=== PATIENT | male | born 1950 | race Caucasian/White ===

== ENCOUNTER 2019-11-25 00:58 | Day surgery (SDC) | payer MEDICARE, SELFPAY ==
[2019-11-17 13:16] VITALS: BMI 26.6
[2019-11-25] MEDS: LACTATED RINGERS 1,000 ML 150 ML IV CONT ×2 (07:56→08:29)
--- NOTE | 2019-11-25 07:57 | WPDGICN ---
Assessment and Plan Additional Plan This is a 69-year-old white male patient seen in evaluation at the request of Dr. Lazarus Simeon. Patient presents for neoplasia screening colonoscopy. His current weight appetite bowel movements are normal. He denies any blood in his stools. He denies abdominal pain. He has had no weight loss. Family history is noncontributory. Past medical history is significant for elevated cholesterol. Medications include atorvastatin. Fish oil. Vitamins and supplements. He has no stated drug allergies. Physical exam reveals patient to be alert. Oriented x3. Vital signs stable. HEENT exam unremarkable. Lungs are clear to auscultation and percussion. Heart is without murmur or extra sounds. Abdominal exam bowel sounds are present soft nontender with no hepatosplenomegaly. Digital external rectal exam is normal. Impression 1. Neoplasia screening. Plan is for screening colonoscopy. GI Consult Note Consult date/time: 11/25/19 07:57 HPI: Manuel Mcneil is a 69 year old male [facility] Social History Social History Smoking status: Never smoker Second hand tobacco smoke exposure: No Alcohol intake: current Drinks per week: 3 Substance use: never Substance use type: does not use Gender identity (if verbalized by the patient): Male Meds Home Medications and Allergies Home Medications Medication Instructions Recorded Confirmed Type omega-3 fatty acids 1,000 mg 1,000 mg PO DAILY 10/11/19 11/17/19 History capsule atorvastatin 10 mg tablet 10 mg PO DAILY #90 tablet 11/22/19 Rx Allergies Allergy/AdvReac Type Severity Reaction Status Date / Time No Known Allergies Allergy Unknown Unverified 11/25/19 07:58
[2019-11-25 07:59] VITALS: BP 111/77; PULSE 55; RESP 16; TEMP 36.7; O2SAT 99; BMI 26.4
--- NOTE | 2019-11-25 08:06 | WPDANESEPPF ---
Anes - Initial Pre Proc Eval Procedure: Operation Date: 11/25/19 08:30 Proposed Procedures p Screening Colonoscopy - Jesus Christy MD Date/Time: 11/25/19 08:06 Surgeon: Jesus Christy MD Pre Op Diagnosis: neoplasm screening Patient Data Age: 69 Gender: M Height: 6 ft Weight: 88.4 kg Last Vital Signs Temp 98.1 F 11/25/19 07:59 Pulse 55 L 11/25/19 07:59 Resp 16 11/25/19 07:59 BP 111/77 11/25/19 07:59 Pulse Ox 99 11/25/19 07:59 Allergies Allergy/AdvReac Type Severity Reaction Status Date / Time No Known Allergies Allergy Unknown Unverified 11/25/19 07:58 Home Medications Medication Instructions Recorded Confirmed Type omega-3 fatty acids 1,000 mg 1,000 mg PO DAILY 10/11/19 11/17/19 History capsule atorvastatin 10 mg tablet 10 mg PO DAILY #90 tablet 11/22/19 11/25/19 Rx Patient hx anesthesia problems: none Family hx anesthesia problems: none PMFSH Past Medical History Medical History (Updated 11/25/19 @ 08:01 by Esdras Patten MD) Hyperlipidemia Surgical History Surgical History History of prostate surgery Status post cataract extraction Status post wisdom tooth extraction Social History Social History Smoking status: Never smoker Second hand tobacco smoke exposure: No Alcohol intake: current Drinks per week: 3 Substance use: never Substance use type: does not use Gender identity (if verbalized by the patient): Male Anes - Eval Final PreProcedure Day of Procedure 11/25/19 08:06 Patient weight: normal Heart: regular rate and rhythm Lungs: clear to auscultation Airway: Mallampati scale class II Neurological: alert and oriented Last oral intake: >/= 8 hours ASA classification: II Emergent: no Anesthetic plan: proceed Anesthesia type and monitoring: general GIVS and standard monitoring Informed Consent: The patient's anesthetic plan and its attendant risks and benefits were discussed with the patient/family/POA. Questions were solicited and answers provided to the satisfaction of the patient/family/POA.
[2019-11-25 09:00] VITALS: BP 96/58; PULSE 56; RESP 17; O2SAT 97
[2019-11-25 09:10] VITALS: BP 97/64; PULSE 52; RESP 20; O2SAT 97
[2019-11-25 09:20] VITALS: BP 98/68; PULSE 55; RESP 19; O2SAT 99
== END 2019-11-25 09:39 | disposition home or self-care (01) ==
PROVIDERS: PCP Family Medicine; Visit Provider Internal Medicine Gastroenterology
PROC: 0DJD8ZZ Inspection of Lower Intestinal Tract, Via Natural or Artificial Opening Endoscopic (ICD-10-PCS; CPT 45378; principal; 2019-11-25 08:30)
DX: Z12.11 Encounter for screening for malignant neoplasm of colon (principal); K64.8 Other hemorrhoids; E78.00 Pure hypercholesterolemia, unspecified
CPT/HCPCS: G0121; J2704; J7120

== ENCOUNTER 2021-05-17 11:29 | Outpatient (CLI) | payer MEDICARE, SELFPAY ==
--- NOTE | ~2021-05-17 | XR_ITS ---
EXAMINATION: XR lumbar spine 2-3V DATE: 05/17/2021 11:47 INDICATION: Low back pain TECHNIQUE: Anteroposterior and lateral views of the lumbar spine, and cone-down lateral view of the l umbosacral junction were obtained. COMPARISON: 01/19/2006 FINDINGS: There is no fracture, dislocation, or subluxation of the lumbar spine. Mild loss of interve rtebral disc space height is present at L4-5. The vertebral body heights are maintained. There appear s to be mild loss of anterior vertebral body height at T12. The bowel gas pattern is normal. IMPRESSION: 1. Mild lumbar spondylosis without acute findings or significant interval change. 2. Possible mild T12 compression fracture. Reviewed, dictated and finalized at location B. IMPRESSION: 1. Mild lumbar spondylosis without acute findings or significant interval alcala e. 2. Possible mild T12 compression fracture.
== END 2021-05-17 11:30 | disposition home or self-care (01) ==
LOC: ANHIMG 11:33
PROVIDERS: PCP Family Medicine; Visit Provider Nurse Practitioner Family
DX: M47.896 Other spondylosis, lumbar region (principal)
CPT/HCPCS: 72100

== ENCOUNTER → 2021-05-28 15:21 | Outpatient (CLI) | payer MEDICARE, SELFPAY ==
--- NOTE | ~2021-05-28 | CT_ITS ---
EXAMINATION: CT thoracic spine wo con DATE: 05/28/2021 15:37 INDICATION: T12 compression fracture. Low back pain. TECHNIQUE: Computed tomography (CT) of the thoracic spine was performed without intravenous contrast. Automated exposure control and iterative reconstruction technique were employed. The dose-length pro duct was 746.23 mGy-cm. COMPARISON: Thoracic spine radiographs 05/17/2021 FINDINGS: Calcified right lung nodules, calcified right hilar and mediastinal lymph nodes, and spleni c calcifications are consistent with old granulomatous disease. There is 5 degrees levocurvature of u pper thoracic spine. There is mild chronic anterior wedging of T7, T8, T11, and T12 vertebral bodies. There is severe cervical spondylosis. There is moderately decreased disc height from T5-T6 through T 8-T9. There are bridging endplate osteophytes from T5-T12, consistent with diffuse idiopathic skeleta l hyperostosis (DISH). At T10-T11, there is mild central canal stenosis. There is multilevel mild fac et joint osteoarthritis. There is mild neural foraminal stenosis at multiple levels bilaterally. On t he right, there is moderate neural foraminal stenosis at T3-T4. IMPRESSION: 1. No acute fracture. 2. DISH. 3. Moderate thoracic spondylosis and severe cervical spondylosis. Reviewed, dictated and finalized at location A.
== END ==
PROVIDERS: PCP Family Medicine; Visit Provider Nurse Practitioner Family
DX: S22.080A Wedge compression fracture of T11-T12 vertebra, initial encounter for closed fracture (principal); X58.XXXA Exposure to other specified factors, initial encounter; M48.14 Ankylosing hyperostosis [Forestier], thoracic region; M47.892 Other spondylosis, cervical region; M47.894 Other spondylosis, thoracic region
CPT/HCPCS: 72128

== ENCOUNTER → 2021-10-15 13:22 | Outpatient (CLI) | payer MEDICARE, SELFPAY ==
--- NOTE | ~2021-10-15 | XR_ITS ---
XR knee RT 3V DATE: 10/15/2021 13:53 INDICATION: Right knee pain TECHNIQUE: [place] and standing AP and lateral views COMPARISON: None FINDINGS: There is superior pole patellar enthesopathy at quadriceps tendon insertion. There is sligh t periarticular spurring of the patella and medial femoral condyle. Joint spaces are relatively prese rved. No fracture or dislocation, periosteal reaction or bone destruction, radiopaque intra-articular There is mild enthesopathy of the anterior tibial tuberosity at the patellar tendon insertion site. No radiopaque intra-articular loose body or chondrocalcinosis is evident. IMPRESSION: Mild osteoarthritis Reviewed, dictated and finalized at location B. 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
== END ==
PROVIDERS: PCP Family Medicine; Visit Provider Family Medicine
DX: M17.11 Unilateral primary osteoarthritis, right knee (principal)
CPT/HCPCS: 73562

== ENCOUNTER → 2022-04-17 13:54 | Outpatient (CLI) | payer MEDICARE, SELFPAY ==
--- NOTE | ~2022-04-17 | XR_ITS ---
XR knee RT 2V DATE: 04/17/2022 14:31 INDICATION: Right knee pain TECHNIQUE: AP and lateral views COMPARISON: 10/15/2021 right knee FINDINGS: There is mild superior pole patellar enthesopathy. There is slight spurring of the patella and medial compartments and minimal loss of height of medial compartment joint space. No fracture or dislocation or joint effusion. No periosteal reaction or bone destruction. IMPRESSION: Mild osteoarthritis; little interval change since 10/15/2021 Reviewed, dictated and finalized at location A.
--- NOTE | ~2022-04-17 | XR_ITS ---
XR knee LT 2V DATE: 04/17/2022 14:31 INDICATION: Right knee pain TECHNIQUE: AP and lateral views COMPARISON: None FINDINGS: There is mild periarticular spurring at the patella and mild loss of height of medial melo rtment joint space. No fracture or dislocation or joint effusion. Superior pole patellar enthesopathy at quadriceps tendon insertion. No radiopaque intra-articular loose body or chondrocalcinosis. IMPRESSION: Mild patellofemoral and medial compartment osteoarthritis Reviewed, dictated and finalized at location A.
== END ==
PROVIDERS: PCP Family Medicine; Visit Provider Family Medicine
DX: M25.561 Pain in right knee (principal); M25.562 Pain in left knee; M17.0 Bilateral primary osteoarthritis of knee
CPT/HCPCS: 73560

== ENCOUNTER → 2023-06-04 16:04 | Outpatient (CLI) | payer MEDICARE, SELFPAY ==
--- NOTE | ~2023-06-04 | XR_ITS ---
Thoracic spine: Clinical Indication: Back pain AP and lateral views were performed. No fracture is seen. There is normal alignment of the vertebrae. The intervertebral disc spaces appe ar normal. Paravertebral soft tissues appear normal. There is DISH of the thoracic spine. Impression: DISH of the mid thoracic spine. Reviewed, dictated and finalized at location . Impression: DISH of the mid thoracic spine.
--- NOTE | ~2023-06-04 | XR_ITS ---
Lumbosacral Spine: AP and lateral views Clinical History: Pain Findings: The normal lordotic curve is maintained. The vertebral bodies and posterior elements are i ntact. There is moderate degenerative disc change at L4-L5. There is moderate facet arthropathy at L4 -L5 and L5-S1. The sacroiliac joints are normally outlined. Impression: Degenerative change at the lower lumbar spine, as above. Reviewed, dictated and finalized at location M. Impression: Degenerative change at the lower lumbar spine, as above.
== END ==
PROVIDERS: PCP Family Medicine; Visit Provider Family Medicine
DX: M54.6 Pain in thoracic spine (principal); M54.50 Low back pain, unspecified; M48.14 Ankylosing hyperostosis [Forestier], thoracic region
CPT/HCPCS: 72070; 72100

== ENCOUNTER 2023-06-20 13:43 | Outpatient (CLI) | payer MEDICARE, SELFPAY ==
--- NOTE | ~2023-06-20 | MR_ITS ---
EXAMINATION: MR thoracic spine wo con, MR lumbar spine wo con DATE: 06/20/2023 14:57 INDICATION: Spinal ankylosis and hyperostosis. Thoracic and lumbar back pain. TECHNIQUE: 1. Magnetic resonance imaging (MRI) of the thoracic spine was performed without intravenous contrast. Sagittal localizer T1-weighted FSE of the cervicothoracic spine was obtained. Thoracic spine sequenc es included sagittal T2-weighted FSE, sagittal T1-weighted SE, Sagittal T2-weighted FS FSE, and axial T2-weighted FSE. 2. Magnetic resonance imaging (MRI) of the lumbar spine was performed without intravenous contrast. S equences included sagittal T2-weighted FSE, sagittal T2-weighted FS FSE, sagittal T1-weighted FSE, an d axial T2-weighted FSE. COMPARISON: Radiograph dated 06/04/2023 and [id number] dated 06/05/2021 FINDINGS: THORACIC SPINE MRI: Mild thoracic kyphosis. There is chronic mild anterior wedging at T7, T8, T11 and T12. There are righ t anterior bridging osteophytes spanning multiple disc spaces in the mid to lower thoracic spine. Mod erate disc height loss at T6-T7 and T7-T8 and T8-T9 with suggestion of some osseous fusion across a p ortion of at least the T8-T9 disc space. Additional moderate disc height loss at C7-T1. There is mild disc height loss at the remaining thoracic levels. There are small disc protrusions at multiple leve ls throughout the thoracic spine without significant central canal stenosis. There are small Schmorl' s nodes posteriorly at the T10-T11 and T11-T12 disc spaces which results in minimal retropulsion of t he adjacent cephalad and caudal aspects the posterior wall of T11 continuing to mild central canal st enosis at both levels. There is mild facet osteoarthritis contributing to mild neural foraminal steno sis at multiple levels of both the left and right sides of the thoracic spine. There is normal spinal cord signal Paravertebral soft tissues are unremarkable. LUMBAR SPINE MRI: Alignment is normal. Chronic mild posterior wedging at L5. Mild to moderate disc height loss with fib rovascular degenerative endplate changes at L4-5. Marrow signal is otherwise unremarkable. Disc desic cation without significant disc height loss throughout the remaining lumbar levels. Annular fissures at L4-L5 and L5-S1. The conus medullaris terminates at L1. Vertebral soft tissues are unremarkable. T he following disc levels are specifically discussed: L1-L2: Disc is mildly bulging. There is mild bilateral facet joint osteoarthritis. There is mild bila teral neural foraminal stenosis. There is no central canal stenosis. L2-L3: Disc is bulging. There is mild bilateral facet joint osteoarthritis. There is mild right and m ild to moderate left neural foraminal stenosis. There is mild central canal stenosis. L3-L4: Disc is bulging. There is mild left and moderate right facet joint osteoarthritis. There is mi ld bilateral neural foraminal stenosis. There is mild central canal stenosis. L4-L5: Disc is bulging with annular fissure. There is moderate right and mild to moderate left facet joint osteoarthritis. There is moderate bilateral, left greater than right, neural foraminal stenosis . There is mild central canal stenosis. L5-S1: Disc is bulging with annular fissure. There is severe bilateral facet joint osteoarthritis. Th ere is mild right and moderate left neural foraminal stenosis. There is no central canal stenosis. IMPRESSION: 1. . Thoracic and mild to moderate lumbar spondylosis. Reviewed, dictated and finalized at location A. IMPRESSION: 1. . Thoracic and mild to moderate lumbar spondylosis.
== END 2023-06-20 13:44 | disposition home or self-care (01) ==
PROVIDERS: PCP Family Medicine; Visit Provider Family Medicine
DX: M54.6 Pain in thoracic spine (principal); M54.50 Low back pain, unspecified; M48.10 Ankylosing hyperostosis [Forestier], site unspecified; M43.06 Spondylolysis, lumbar region; M43.04 Spondylolysis, thoracic region
CPT/HCPCS: 72146; 72148

== ENCOUNTER 2023-11-25 07:58 | Day surgery (SDC) | payer MEDICARE, SELFPAY ==
[2023-11-17 10:37] VITALS: BMI 25.7
--- NOTE | ~2023-11-25 | XR_ITS ---
EXAMINATION: XR fluoroscopy no charge DATE: 11/25/2023 10:10 [employer] INDICATION: TONE L3,L4,L5 NERVE BK . TECHNIQUE: 10 fluoroscopic images of the lumbar spine were obtained during bilateral L3, L4, L5 nerve block performed by the surgeon. I was not present during the procedure. Fluoroscopy exposure time wa s 17.3 seconds. Air Kerma 6.20 mGy. COMPARISON: None FINDINGS: Injection needles approach the lateral aspect of multiple lower lumbar vertebral bodies, bilaterally. IMPRESSION: Fluoroscopic documentation of bilateral L3, L4, L5 nerve block. Please refer to the operative note fo r complete procedural details . Reviewed, dictated and finalized at location K. [employer] IMPRESSION: Fluoroscopic documentation of bilateral L3, L4, L5 nerve block. Please refer to the operative note for complete procedural details .
[2023-11-25 09:40] VITALS: BP 122/83; PULSE 65; RESP 16; TEMP 36.6; O2SAT 97; BMI 26.3
--- NOTE | 2023-11-25 09:42 | WPDHPUPDATE1 ---
History and Physical Update Update Date/Time: 11/25/23 09:42 History and Physical has been reviewed, including an updated exam of the patient. There are NO changes in the patient's condition. Risks, benefits, and alternatives have been discussed and questions answered. Patient agrees to proceed with procedure.
--- NOTE | 2023-11-25 09:43 | W.PM.PROC2 ---
Procedure Note - Detailed Date of Procedure 11/25/23 Pre-op Diagnosis Lumbosacral Spondylosis w/o Myelopathy, chronic low back pain Post-op Diagnosis Same Procedure Performed Bilateral L3, L4, L5 medial branch/dorsal ramus nerve block (#1) addressing the bilateral L4-5, L5-S1 facet joints under fluoroscopic guidance with contrast control. Surgeon Manuel Lee MD Anesthesia Local Description of Procedure INFORMED CONSENT: Risks, benefits and alternatives to the procedure were discussed in detail with the patient who expressed explicit understanding and consent to proceed. Patient was informed verbally and in written form regarding the risks associated with the procedure including the low risk of serious infection, bleeding/bruising, allergic reaction, nerve or organ injury, paralysis, procedural site pain or discomfort, worsening pain and/or mobility, failure to treat and/or disfigurement. The patient expressed explicit understanding and consent to proceed. All materials required for the procedure were available prior to procedure start. Site and side were marked prior to procedure and confirmed in the presence of the patient. PROCEDURE IN DETAIL: The patient was brought to the procedural suite and placed in the prone position. Patient was made comfortable with use of pillows under the head/chest, hips and ankles. Skin overlying the injection site on the affected side(s) was prepared broadly with ChloraPrep applicator and draped in a sterile manner. Aseptic technique was used throughout. The endplates of the vertebral bodies at the site(s) of interest were aligned in the AP view. Ipsilateral oblique angulation was utilized to optimize visualization of the intersection between the superior articulating process and transverse process at each target site. Local anesthesia was established by infiltration with approximately 5 mL of 1% lidocaine via a 1-1/2 inch 27-gauge needle. A 25-gauge 3.0 inch Quincke spinal needle was advanced until the needle tip contacted periosteum at the target site, right L3. Lateral view was utilized to confirm the appropriate placement of the needle tip just anterior to the facet line and superior to the pedicle. In the Lateral view, 0.25 mL of Omnipaque 300 contrast medium was injected after negative aspiration for CSF, blood or other bodily fluid, showing appropriate extra-articular spread of contrast without evidence of intravascular, foraminal or intrathecal placement. A 0.5 mL solution of 0.5% PF bupivacaine was injected after negative repeat aspiration. Appropriate spread of the injectate was confirmed with washout of previously injected contrast. No parasthesias were elicited. Needle was removed completely intact without difficulty. The same exact procedure was repeated for all remaining levels on the ipsilateral side, right L4, L5 medial branches/dorsal ramus, modified as necessary to accommodate for the new target location with identical findings and results and no evidence of complication. The same exact procedure was repeated for all remaining levels on the contralateral side, left L3, L4, L5 medial branches/dorsal ramus, modified as necessary to accommodate for the new target location with identical findings and results and no evidence of complication. Images were saved and documented in the patient chart. Patient's skin was cleaned and sterile bandage applied. The patient tolerated the procedure well. The patient was transported to the recovery area in stable condition where they were observed for an appropriate amount of time prior to discharge, without evidence of complication. Patient was instructed on the appropriate completion of a pain diary over the next 12-24 hours. The patient was instructed to avoid excessive activity for the next 48 hours, including climbing and frequent use of stairs. Showers only for 48 hours. They were instructed not to drive or operate heavy machinery for 24 hours. They are to monitor for sever
[2023-11-25 10:17] VITALS: BP 138/80; PULSE 67; RESP 14; O2SAT 95
[2023-11-25 10:22] VITALS: BP 157/82; PULSE 72; RESP 12; O2SAT 96
[2023-11-25] MEDS: BUPivacaine HCL 0.5% 10 ML AMP INFILTRATE (10:24)
[2023-11-25 10:26] VITALS: BP 149/76; PULSE 71; RESP 12; O2SAT 96
[2023-11-25] MEDS: LIDOCAINE HCL 1% PF INJ 5 ML VIAL AFFCTD EYE (10:28)
[2023-11-25 10:33] VITALS: BP 130/94; PULSE 64; RESP 16; O2SAT 97
== END 2023-11-25 10:45 | disposition home or self-care (01) ==
PROVIDERS: PCP Family Medicine; Visit Provider Anesthesiology Pain Medicine
PROC: (CPT 64493; principal; 2023-11-25 10:30)
DX: M47.817 Spondylosis without myelopathy or radiculopathy, lumbosacral region (principal); M54.59 Other low back pain
CPT/HCPCS: 64493; 64494; 99199

== ENCOUNTER 2023-12-30 06:00 | Day surgery (SDC) | payer MEDICARE, SELFPAY ==
--- NOTE | ~2023-12-30 | XR_ITS ---
EXAMINATION: XR fluoroscopy no charge DATE: 12/30/2023 7:55 [employer]VERTISING DESIGN[employer] INDICATION: TONE L3-5 BK . TECHNIQUE: 11 fluoroscopic images and one cine clip of 4 images of the lumbar spine were obtained dur ing bilateral L3-5 nerve block, performed by Manuel Lee MD. I was not present during the proced ure. Fluoroscopy exposure time was 15.3 seconds. Air Kerma 3.75 mGy. COMPARISON: None FINDINGS/IMPRESSION: Fluoroscopic documentation of bilateral L3-5 nerve block. Please refer to the operative note for comp lete procedural details. Reviewed, dictated and finalized at location K. RTISING DESIGNER
[2023-12-30 07:23] VITALS: BP 122/73; PULSE 58; RESP 14; TEMP 36.4; O2SAT 97
--- NOTE | 2023-12-30 07:51 | WPDHPUPDATE1 ---
History and Physical Update Update Date/Time: 12/30/23 07:51 History and Physical has been reviewed, including an updated exam of the patient. There are NO changes in the patient's condition. Risks, benefits, and alternatives have been discussed and questions answered. Patient agrees to proceed with procedure.
--- NOTE | 2023-12-30 07:52 | W.PM.PROC2 ---
Procedure Note - Detailed Date of Procedure 12/30/23 Pre-op Diagnosis Lumbar Spondylosis w/o Myelopathy or Radiculopathy, chronic low back pain Post-op Diagnosis Same Procedure Performed Bilateral L3, L4, L5 medial branch blocks (#2) addressing the bilateral L4-5, L5-S1 facet joints under fluoroscopic guidance with contrast control. Surgeon Manuel Lee MD Anesthesia Local Description of Procedure INFORMED CONSENT: Risks, benefits and alternatives to the procedure were discussed in detail with the patient who expressed explicit understanding and consent to proceed. Patient was informed verbally and in written form regarding the risks associated with the procedure including the low risk of serious infection, bleeding/bruising, allergic reaction, nerve or organ injury, paralysis, procedural site pain or discomfort, worsening pain and/or mobility, failure to treat and/or disfigurement. The patient expressed explicit understanding and consent to proceed. All materials required for the procedure were available prior to procedure start. Site and side were marked prior to procedure and confirmed in the presence of the patient. PROCEDURE IN DETAIL: The patient was brought to the procedural suite and placed in the prone position. Patient was made comfortable with use of pillows under the head/chest, hips and ankles. Skin overlying the injection site on the affected side(s) was prepared broadly with ChloraPrep applicator and draped in a sterile manner. Aseptic technique was used throughout. The endplates of the vertebral bodies at the site(s) of interest were aligned in the AP view. Ipsilateral oblique angulation was utilized to optimize visualization of the intersection between the superior articulating process and transverse process at each target site. Local anesthesia was established by infiltration with approximately 5 mL of 1% lidocaine via a 1-1/2 inch 27-gauge needle. A 25-gauge 3.5 inch Quincke spinal needle was advanced until the needle tip contacted periosteum at the target site, right L3. Lateral view was utilized to confirm the appropriate placement of the needle tip just anterior to the facet line and superior to the pedicle. In the Lateral view, 0.25 mL of Omnipaque 300 contrast medium was injected after negative aspiration for CSF, blood or other bodily fluid, showing appropriate extra-articular spread of contrast without evidence of intravascular, foraminal or intrathecal placement. A 0.5 mL solution of 2.0% preservative-free lidocaine was injected after negative repeat aspiration. Appropriate spread of the injectate was confirmed with washout of previously injected contrast. No parasthesias were elicited. Needle was removed completely intact without difficulty. The same exact procedure was repeated for all remaining levels on the ipsilateral side, right L4, L5 medial branches/dorsal ramus, modified as necessary to accommodate for the new target location with identical findings and results and no evidence of complication. The same exact procedure was repeated for all remaining levels on the contralateral side, left L3, L4, L5 medial branches/dorsal ramus, modified as necessary to accommodate for the new target location with identical findings and results and no evidence of complication. Images were saved and documented in the patient chart. Patient's skin was cleaned and sterile bandage applied. The patient tolerated the procedure well. The patient was transported to the recovery area in stable condition where they were observed for an appropriate amount of time prior to discharge, without evidence of complication. Patient was instructed on the appropriate completion of a pain diary over the next 12-24 hours. The patient was instructed to avoid excessive activity for the next 48 hours, including climbing and frequent use of stairs. Showers only for 48 hours. They were instructed not to drive or operate heavy machinery for 24 hours. They are to monito
[2023-12-30 08:00] VITALS: BP 126/67; PULSE 68; RESP 20; O2SAT 95
[2023-12-30 08:10] VITALS: BP 133/73; PULSE 69; RESP 13; O2SAT 95
[2023-12-30] MEDS: LIDOCAINE HCL 2% PF INJ 5 ML VIAL 2 ML INFILTRATE (08:15)
[2023-12-30] MEDS: LIDOCAINE HCL 1% PF INJ 5 ML VIAL 3 ML INFILTRATE (08:15)
[2023-12-30 08:18] VITALS: BP 132/77; PULSE 61; RESP 16; O2SAT 97
== END 2023-12-30 08:33 | disposition home or self-care (01) ==
PROVIDERS: PCP Family Medicine; Visit Provider Anesthesiology Pain Medicine
PROC: (CPT 64493; principal; 2023-12-30 08:00)
DX: M47.817 Spondylosis without myelopathy or radiculopathy, lumbosacral region (principal); M54.59 Other low back pain
CPT/HCPCS: 64493; 64494; 99199

== ENCOUNTER 2024-05-11 14:09 | Outpatient (CLI) | payer MEDICARE, SELFPAY ==
--- NOTE | ~2024-05-11 | XR_ITS ---
XR chest 2V Ordering provider: Manuel Lee MD History: 73 years Male with . M47.817 - Spondylosis without myelopathy or radiculopathy... . Comparison: January 19, 2006 FINDINGS: MEDIASTINUM: The cardiac silhouette is not enlarged. Elevation of the left hemidiaphragm. Prominent b oth gill. LUNGS: No infiltrates, effusions or pneumothorax. Atelectatic changes in the left lung base. Opacity seen in the apical area bilaterally is most likely summation shadow. OTHER: No free air under the diaphragm. Degenerative changes of the spine. IMPRESSION: Minimal atelectatic changes in the left lung base. Otherwise, unremarkable. Vague opacity in the apical areas more on the left side most likely summation shadow follow-up in [address] is advised. Reviewed, dictated and finalized at location A. IMPRESSION: Minimal atelectatic changes in the left lung base. Otherwise, unremarkable. Vague opacity in the apical areas more on the left side most likely summation s hadow follow-up in [address] is advised.
--- NOTE | 2024-05-11 14:22 | ECG_ITS ---
Test Date: 2024-05-11 14:28:02 Measurements Intervals [place] Rate: 65 P: 61 VA: 160 QRS: 19 QRSD: 86 T: 49 QT: 385 QTc: 403 Interpretive Statements SINUS RHYTHM EARLY PRECORDIAL R/S TRANSITION BORDERLINE ECG No previous ECG available for comparison Electronically Signed On 05-11-2024 15:04:48 CDT by Marcos Luna D.O.
[2024-05-11 14:29] LABS: Hematocrit 43.3 % (42.0-52.0); Hemoglobin 14.7 g/dL (14.0-18.0); Mean Corpuscular HGB Conc 33.9 g/dl (32-36); Mean Corpuscular Hemoglobin 32.2 pg (26-34); Mean Corpuscular Volume 94.7 fl (80-100); Mean Platelet Volume 9.1 fl (7.4-10.4); Platelet Count Result 275 k/mm3 (150-375); Red Blood Count 4.57 M/mm3 (4.6-6.20); Red Cell Distribution Width 11.8 % (11.5-14.5); White Blood Count 5.9 K/mm3 (4.5-10.0)
[2024-05-11 14:38] LABS: Alanine Aminotransferase 21 U/L (6-50); Albumin Level 4.5 g/dL (3.5-5.1); Alkaline Phosphatase 81 U/L (38-126); Anion Gap 10 mmol/L (4-12); Aspartate Amino Transferase 25 U/L (17-59); Blood Urea Nitrogen 21 mg/dL (9-20); Calcium 9.3 mg/dL (8.4-10.2); Carbon Dioxide 28 mmol/L (22-30); Chloride 102 mmol/L (98-107); Estimated Glomerular Filt Rate > 60; Glucose 91 mg/dL (65-110); Potassium 4.1 mmol/L (3.4-5.0); Sodium 140 mmol/L (137-145)
[2024-05-11 14:49] LABS: Prothrombin Time 13.5 Seconds (11.1-14.7)
[2024-05-11 14:50] LABS: Partial Thromboplastin Time 23.9 Seconds (22.3-36.8)
== END 2024-05-11 14:10 | disposition home or self-care (01) ==
PROVIDERS: PCP Family Medicine; Visit Provider Anesthesiology Pain Medicine
DX: M47.817 Spondylosis without myelopathy or radiculopathy, lumbosacral region (principal); R94.31 Abnormal electrocardiogram [ECG] [EKG]
CPT/HCPCS: 36415; 71046; 80053; 85027; 85610; 85730; 93005

== ENCOUNTER 2024-05-18 05:58 | Day surgery (SDC) | payer MEDICARE, SELFPAY ==
[2024-05-11 11:38] VITALS: BMI 25.9
[2024-05-18] VITALS (9 sets, daily range): BP systolic 113–134; BP diastolic 71–82; PULSE 52–60; RESP 8–18; TEMP 36.3–36.6; O2SAT 97–100; BMI 25.6
--- NOTE | ~2024-05-18 | XR_ITS ---
XR fluoroscopy no charge Indication:Percutaneous transpedicular intraosseous basivertebral nerve ablation TECHNIQUE: Fluoroscopy used during Percutaneous transpedicular intraosseous basivertebral nerve abla tion performed by [Manuel Lee MD] on 05/18/2024. 185 seconds of fluoroscopy with 26 fluorosc opic images captured. FINDINGS: Correlate with procedure note. IMPRESSION: Fluoroscopy used during Percutaneous transpedicular intraosseous basivertebral nerve abla tion. Reviewed, dictated and finalized at location B. IMPRESSION: Fluoroscopy used during Percutaneous transpedicular intraosseous ba sivertebral nerve ablation.
--- NOTE | 2024-05-18 05:37 | PM.HPGS ---
History of Present Illness History of Present Illness Consent: Risks, benefits, and alternatives have been discussed and questions answered. Patient agrees to proceed with procedure. 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 Review of Systems Review of Systems: Patient denies any new infectious, allergic, cardiopulmonary, neurologic or constitutional symptoms or changes in activity tolerance or exercise capacity including new or progressive SOB/RICHARDS, peripheral edema, productive cough, dysuria, nausea/vomiting, diarrhea, weight change, fevers/chills/night sweats, new or progressive neurologic deficit, cognitive or mood changes since last seen, except as documented in the HPI. All systems reviewed & are unremarkable except as noted in HPI and below PMFSH Past Medical History Medical History Hyperlipidemia Surgical History Surgical History History of prostate surgery Status post cataract extraction Status post wisdom tooth extraction Family History Family History Father Hypertension Cerebrovascular accident Family history of diabetes mellitus in first degree relative Family history of coronary artery disease Mother Family history of diabetes mellitus in first degree relative Social History Social History Smoking status: Never smoker Second hand tobacco smoke exposure: No Alcohol intake: current Drinks per week: 2 Alcohol use details: social Substance use: current Substance use type: marijuana Other substance usage details: 2X A WEEK Living arrangements: with family Occupation/Education: retired Gender identity (if verbalized by the patient): Male Sexual Orientation (if Verbalized by the Patient): Straight or Heterosexual Spiritual care concerns: No Meds Home Medications and Allergies Home Medications Medication Instructions Recorded Confirmed Type omega-3 fatty acids 1,000 mg 1,000 mg PO DAILY 10/11/19 05/11/24 History capsule (Fish Oil Concentrate) ascorbic acid (vitamin C) 500 mg 500 mg PO DAILY 10/16/20 05/11/24 History capsule multivitamin 1 tablet PO DAILY 10/16/20 05/11/24 History vitamin E mixed 400 unit capsule 400 unit PO DAILY 10/16/20 05/11/24 History tamsulosin 0.4 mg capsule (Flomax) 0.4 mg PO HS 11/11/23 05/11/24 History atorvastatin 10 mg tablet 10 mg PO HS 05/11/24 05/11/24 History coenzyme Q10-red yeast rice 25 1 cap PO DAILY 05/11/24 05/11/24 History mg-600 mg capsule vitamin B complex 1 cap PO DAILY 05/11/24 05/11/24 History Allergies Allergy/AdvReac Type Severity Reaction Status Date / Time No Known Allergies Allergy Unknown Verified 05/11/24 11:36 Exam Narrative: The patient's physical exam is essentially unchanged from prior examination on 01/15/2024. Specifically, patient demonstrates normal lung capacity, tidal volume and respiratory rate without wheezes, crackles, rales or rubs. Heart rate and rhythm are regular without murmurs, gallops or rubs. No JVD. Pulses 2+ globally without increasing peripheral edema. AAOx3, NC/AT without acute distress or altered consciousness. Speech, cognition, mood and judgment at baseline and within normal limits. Const: General: cooperative Orientation/consciousness: patient oriented x3 Assessment and
--- NOTE | 2024-05-18 05:40 | WPDHPUPDATE1 ---
History and Physical Update Update Date/Time: 05/18/24 05:40 History and Physical has been reviewed, including an updated exam of the patient. There are NO changes in the patient's condition. Risks, benefits, and alternatives have been discussed and questions answered. Patient agrees to proceed with procedure.
--- NOTE | 2024-05-18 05:40 | W.PM.PROC2 ---
Procedure Note - Detailed Date of Procedure 05/18/24 Pre-op Diagnosis Vertebrogenic Low Back Pain Post-op Diagnosis Same Procedure Performed Percutaneous transpedicular intraosseous basivertebral nerve thermal radiofrequency ablation (Intracept procedure) at L4, L5 under fluoroscopic guidance. Surgeon Manuel Lee MD Anesthesia General (GETA] in the [prone] position with infiltration of local anesthetic. 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 They are significantly limited in their daily and/or work-related activities as a result, including sitting, standing, lifting/carrying and sleeping, with failure to respond to and/or tolerate extensive efforts at more conservative management (i.e. oral and topical analgesics including NSAIDs, acetaminophen and opioids, Physical Therapy and modalities, time/rest, interventional procedures/corticosteroid injections) for greater than 6 months prior to today's procedure establishing medical necessity for this well-studied and FDA-approved pain-relieving procedure. INFORMED CONSENT: Procedure was discussed in detail with the patient at a previous visit and at the time of surgery. During this discussion, the risks, benefits, and alternatives to the procedure, including doing nothing, were thoroughly described to the patient, who expressed explicit understanding and consent to proceed. Specific risks discussed with the patient included, but were not limited to the risk of serious local or systemic infection, skin burn/scarring, major or minor bleeding/bruising, allergic reaction to medications or materials, inadvertent lung or other organ injury, new or worsening spinal fracture, inadvertent thermal or mechanical nerve or spinal cord injury resulting in increased pain, weakness, numbness or loss of bowel or bladder control, the need for repeat or additional surgery, inadvertent dural puncture resulting in acute or chronic CSF leak and post-dural puncture headache, failure to treat pain, and risks associated with general anesthesia in the prone position including eye, dental, joint, nerve, spine or soft tissue injury/pain related to positioning, heart attack, respiratory failure, aspiration, pneumonia, DVT/PE or thrombosis, hemorrhagic or ischemic stroke, hypoxia, hypo- or hypertension, seizure, coma and . Patient understands these risks and agrees that the opportunity for benefit outweighs the potential risk of harm. Procedure specific informed consent form was read, reviewed, signed by the patient and surgeon and witnessed in the pre-operative area. All pertinent questions were asked and answered to the patient's satisfaction. Surgical site was pre-treated with chlorhexidine wipes. All materials required for the procedure were available and site and side of procedure was marked prior to procedure start. Appropriate timeout was conducted by all participants in the OR (patient's ID, procedure to be performed, procedure site and side, allergies and appropriate medications including pre-operative antibiotics were verified) prior to incision. PROCEDURE IN DETAIL: After full informed consent and adequate IV access was obtained without difficulty; the patient was escorted to the procedural suite. ASA standard monitors were applied and utilized throughout the case. Prophylactic antibiotics were administered prior to procedure start. GETA was initiated without difficulty or event. Eyes were protected. Patient was converted to the prone position in optimal flexion using pillows under the abdomen, hips and ankles. Pressure points were padded, cervical spine and joints were placed in neutral position. Eyes, breasts and genitals were evaluated and protected as appr
[2024-05-18] MEDS: LACTATED RINGERS 1,000 ML 30 ML IV CONT (09:00)
--- NOTE | 2024-05-18 09:13 | WPDANESEPPF ---
Anes - Initial Pre Proc Eval Procedure: Operation Date: 05/18/24 09:00 Proposed Procedures p Percutaneous Transpedicular Intraosseous Basivertebral Nerve Ablation L4, L5 under Fluoroscopic Guidance - Manuel Lee MD Date/Time: 05/18/24 09:13 Surgeon: Manuel Lee MD Pre Op Diagnosis: Vertebrogenic Low Back Pain Patient Data Age: 73 Gender: M Height: 1.83 m Weight: 85.6 kg Last Vital Signs Temp 36.6 C 05/18/24 07:51 Pulse 58 L 05/18/24 07:51 Resp 18 05/18/24 07:51 BP 120/78 05/18/24 07:51 Pulse Ox 97 05/18/24 07:51 O2 Del Method Room Air 05/18/24 07:51 Allergies Allergy/AdvReac Type Severity Reaction Status Date / Time No Known Allergies Allergy Unknown Verified 05/18/24 07:49 Home Medications Medication Instructions Recorded Confirmed Type omega-3 fatty acids 1,000 mg 1,000 mg PO DAILY 10/11/19 05/18/24 History capsule (Fish Oil Concentrate) ascorbic acid (vitamin C) 500 mg 500 mg PO DAILY 10/16/20 05/18/24 History capsule multivitamin 1 tablet PO DAILY 10/16/20 05/18/24 History vitamin E mixed 400 unit capsule 400 unit PO DAILY 10/16/20 05/18/24 History tamsulosin 0.4 mg capsule (Flomax) 0.4 mg PO HS 11/11/23 05/18/24 History atorvastatin 10 mg tablet 10 mg PO HS 05/11/24 05/18/24 History coenzyme Q10-red yeast rice 25 1 cap PO DAILY 05/11/24 05/18/24 History mg-600 mg capsule vitamin B complex 1 cap PO DAILY 05/11/24 05/18/24 History Patient hx anesthesia problems: none Family hx anesthesia problems: none Results Review: All pre-operative results and documents have been reviewed as part of the pre-operative evaluation. [facility] Past Medical History Medical History Hyperlipidemia Surgical History Surgical History History of prostate surgery Status post cataract extraction Status post wisdom tooth extraction Family History Family History Father Hypertension Cerebrovascular accident Family history of diabetes mellitus in first degree relative Family history of coronary artery disease Mother Family history of diabetes mellitus in first degree relative Social History Social History Smoking status: Never smoker Second hand tobacco smoke exposure: No Alcohol intake: current Drinks per week: 2 Alcohol use details: social Substance use: current Substance use type: marijuana Other substance usage details: 2X A WEEK Living arrangements: with family Occupation/Education: retired Gender identity (if verbalized by the patient): Male Sexual Orientation (if Verbalized by the Patient): Straight or Heterosexual Spiritual care concerns: No Anes - Eval Final PreProcedure Day of Procedure 05/18/24 09:13 Patient weight: normal Heart: regular rate and rhythm Lungs: clear to auscultation Airway: Mallampati scale class II Neurological: alert and oriented Last oral intake: >/= 8 hours ASA classification: III Emergent: no Anesthetic plan: proceed Anesthesia type and monitoring: general ETT and standard monitoring Results Review: All pre-operative results and documents have been reviewed as part of the pre-operative evaluation. Informed Consent: The patient's anesthetic plan and its attendant risks and benefits were discussed with the patient/family/POA. Questions were solicited and answers provided to the satisfaction of the patient/family/POA.
[2024-05-18] MEDS: ceFAZolin SODIUM 2 GM/20 ML SW SYRINGE IV PUSH (09:17)
[2024-05-18] MEDS: BUPIVACAINE/EPINEPHRINE 0.5% 10 ML VIAL INFILTRATE (09:36)
--- NOTE | 2024-05-18 09:46 | SUR.OPER ---
[employer] ablation machine SN [id number] L4-7min L5- 7min
[2024-05-18] MEDS: LIDOCAINE HCL 2% PF INJ 5 ML VIAL 7 ML INFILTRATE (10:00)
--- NOTE | 2024-05-18 11:20 | SUR.PHASEII ---
PT AWAKE AND ALERT. DENIES PAIN. EATING AND DRINKING. TALKATIVE WITH SPOUSE.
--- NOTE | 2024-05-18 11:27 | WPDANESPN ---
Anes - Prog Note Post-Op Date/Time: 05/18/24 11:27 Cardiovascular status: normal Respiratory status: normal Airway patency: baseline Mental status: baseline Post-Op hydration status: normal Vital Signs: Last Vital Signs Temp 36.3 C L 05/18/24 10:15 Pulse 58 L 05/18/24 11:07 Resp 16 05/18/24 11:07 BP 134/82 05/18/24 11:07 Pulse Ox 100 05/18/24 11:07 O2 Del Method Room Air 05/18/24 11:07 O2 Flow Rate 6 05/18/24 10:25 Pain Score (VAS): 0 I/O: Intake & Output 05/17/24 05/18/24 05/18/24 23:59 07:59 15:59 Intake Total 150 Balance 150 Patient Feedback: Patient satisfied with anesthetic care.
== END 2024-05-18 11:50 | disposition home or self-care (01) ==
PROVIDERS: PCP Family Medicine; Visit Provider Anesthesiology Pain Medicine
PROC: (CPT 64628; principal; 2024-05-18 09:00)
DX: M54.51 Vertebrogenic low back pain (principal)
CPT/HCPCS: 64628; 99199

== ENCOUNTER 2024-08-15 11:23 | Emergency (ER) | payer MEDICARE, SELFPAY ==
--- NOTE | ~2024-08-15 | XR_ITS ---
AP and oblique views of the left ribs, and PA chest radiograph Clinical History: Pain COMPARISON: 05/11/2024 Findings: No rib fracture is seen. Osseous alignment is anatomic. Lungs are clear, without focal cons olidation or pleural effusion. Stable elevation left hemidiaphragm. Cardiomediastinal contour is with in normal limits. Soft tissues are unremarkable. Impression: No rib fracture is seen. Clear lungs. Reviewed, dictated and finalized at location M. Impression: No rib fracture is seen. Clear lungs.
[2024-08-15 11:35] VITALS: BP 137/91; PULSE 60; RESP 16; TEMP 36.6; O2SAT 99
--- NOTE | 2024-08-15 11:41 | ED.BACK ---
HPI - Back Pain/Injury General Chief Complaint: Back Pain/Injury Stated Complaint: Back Injury From Fall Time Seen by Provider: 08/15/24 11:41 Source: patient, RN notes reviewed and old records reviewed Mode of arrival: ambulatory Limitations: no limitations History of Present Illness HPI Narrative: 73-year-old male presents to the [facility] left lower ribs, lateral rib pain post fall on Friday, 2 days. Tenderness just below the scapula, laterally No ecchymosis noted Pain is worse with twisting and changing of positions. Onset (ago): day(s) (2) Related Data Home Medications Medication Instructions Recorded Confirmed omega-3 fatty acids 1,000 mg 1,000 mg PO DAILY 10/11/19 08/15/24 capsule (Fish Oil Concentrate) ascorbic acid (vitamin C) 500 mg 500 mg PO DAILY 10/16/20 08/15/24 capsule multivitamin 1 tablet PO DAILY 10/16/20 08/15/24 tamsulosin 0.4 mg capsule (Flomax) 0.4 mg PO HS 11/11/23 08/15/24 atorvastatin 10 mg tablet 10 mg PO HS 05/11/24 08/15/24 coenzyme Q10-red yeast rice 25 1 cap PO DAILY 05/11/24 08/15/24 mg-600 mg capsule vitamin B complex 1 cap PO DAILY 05/11/24 08/15/24 Allergies Allergy/AdvReac Type Severity Reaction Status Date / Time No Known Allergies Allergy Unknown Verified 08/15/24 11:31 Review of Systems Review of Systems: All systems reviewed & are unremarkable except as noted in HPI and below Constitutional: Constitutional: Reports no additional constitutional complaints ENT: Reports system reviewed and no additional complaints, except as documented Cardiovascular: Cardiovascular: Reports no additional cardiovascular complaints, Denies chest pain and Denies dyspnea Respiratory: Respiratory: Reports no additional respiratory complaints, Denies chest congestion, Denies cough and Denies dyspnea Gastrointestinal: Gastrointestinal: Reports no additional gastrointestinal complaints, Denies abdominal pain, Denies nausea and Denies vomiting Musculoskeletal: Musculoskeletal: Reports as per HPI and Reports back pain Integumentary/Breasts: Skin/Breast: Reports system reviewed and no additional complaints, except as docu PMFSH Past Medical History Medical History Hyperlipidemia Surgical History Surgical History History of prostate surgery Status post cataract extraction Status post wisdom tooth extraction Family History Family History Father Hypertension Cerebrovascular accident Family history of diabetes mellitus in first degree relative Family history of coronary artery disease Mother Family history of diabetes mellitus in first degree relative Social History Social History Smoking status: Never smoker Second hand tobacco smoke exposure: No Alcohol intake: current Drinks per week: 2 Alcohol use details: social Substance use: current Substance use type: marijuana Other substance usage details: 2X A WEEK Current Housing: Decline to Answer Concerned About Future Housing: Decline to Answer Difficulty Paying Gas/Electric Bills: Decline to Answer Difficulty Paying for Meds: Decline to Answer Currently Unemployed: Decline to Answer Difficulty w/ Childcare or Family Care: Decline to Answer Living arrangements: with family Occupation/Education: retired Gender identity (if verbalized by the patient): Male Sexual Orientation (if Verbalized by the Patient): Straight or Heterosexual Spiritual care concerns: No Comments At the time of my signature, I reviewed and agree with the nursing past medical, surgical, social, and family history. There is no relevant family history pertinent to the patient complaint. Exam Const: General: cooperative, healthy appearing, comfortable, no acute distress, well developed, alert and well nourish
== END 2024-08-15 12:13 | disposition home or self-care (01) ==
PROVIDERS: Emergency Provider Nurse Practitioner; PCP Family Medicine
DX: S20.222A Contusion of left back wall of thorax, initial encounter (principal); W19.XXXA Unspecified fall, initial encounter; E78.5 Hyperlipidemia, unspecified
CPT/HCPCS: 71101; 99213; G0463